=== PATIENT | female | born 1975 | race Caucasian/White ===

== ENCOUNTER → 2017-04-16 | Outpatient (CLI) | payer OTHER | LOC: BMCIMAGING 11:22 | PROVIDERS: ATTEND Internal Medicine | DX: R05 Cough (principal); R07.9 Chest pain, unspecified; M54.9 Dorsalgia, unspecified ==

== ENCOUNTER → 2017-04-21 | Outpatient (CLI) | payer OTHER | LOC: FIMAGING 11:07 | PROVIDERS: ATTEND Orthopaedic Surgery | DX: M23.221 Derangement of posterior horn of medial meniscus due to old tear or injury, right knee (principal); M22.41 Chondromalacia patellae, right knee; M25.461 Effusion, right knee ==

== ENCOUNTER 2017-07-06 05:54 | Day surgery (SDC) | payer OTHER ==
--- NOTE | 2017-07-05 20:06 | GHP ---
[f rep st] PREOP HISTORY AND PHYSICAL DATE OF ADMISSION: 07/06/2017 HISTORY: The patient is a 42-year-old female, who presents with right medial knee pain since around April of last year. This started after she was moving and carrying a lot of stuff. She has stiff ness and medial joint line area pain. Antiinflammatory medications helped a little. X-rays have rebecca wn maintenance of joint space. Her persistent medial right knee symptoms including medial joint line tenderness prompted an MRI and the MRI shows a right knee medial meniscal tear. It has associated m eniscal cysts that are small. 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 She wishes to proceed w ith right knee arthroscopy to address her symptomatic meniscal tear. ALLERGIES: No known drug allergies. PAST MEDICAL HISTORY: She does have a history of migraines, for which she uses rizatriptan 10 mg tab lets. She also uses escitalopram 20 mg tablets. REVIEW OF SYSTEMS: Negative for cardiopulmonary disease. PHYSICAL EXAM: GENERAL: Well-developed, well-nourished female in no apparent distress. HEAD AND NE CK: Normocephalic, atraumatic. CHEST: Clear. CARDIOVASCULAR: Regular rate and rhythm. ABDOMEN: Soft. NEUROLOGIC: She is alert and oriented x3. EXTREMITIES: Examination of the right knee shows tenderness centered around the medial aspect of the joint, predominantly the medial joint line. Min imal sensitivity around the patellar facets. She has a positive medial Silvestre test. Negative late ral Silvestre test. She has full range of motion. Neurovascular exam and skin are intact. Trace eff usion. IMPRESSION: Right knee symptomatic medial meniscal tear. PLAN: Right knee arthroscopy and cartilage work as needed. Benefits and risks of surgery have been reviewed. She has signed a consent form and wishes to proceed. /[id number]/MODL
[2017-07-06] MEDS ORDERED: LR 1,000 ML IV SCH (06:12)
[2017-07-06] MEDS ORDERED: ceFAZolin 2 GM/SWFI 2 GM/20 ML SYR IVP ONE (06:12)
[2017-07-06] MEDS ORDERED: LR 1,000 ML IV ONE (06:14)
--- NOTE | 2017-07-06 07:21 | PDHPUP ---
History & Physical Update H&P update statement: This history and physical update is based on an assessment of the patient which was completed after admission or registration (within 24 hours), but prior to the surgery/procedure.
[2017-07-06] MEDS ORDERED: BUPIVACAINE/EPI 0.5% 30 ML SDV ONE (07:52)
[2017-07-06] MEDS ORDERED: DEPO METHYLPREDNISOLONE 40 MG/ML SDV ONE (07:52)
[2017-07-06] MEDS ORDERED: BUPIVACAINE 0.5% 30 ML SDV ONE (07:52)
[2017-07-06] MEDS ORDERED: fentaNYL 100 MCG/2 ML INJ ONE ×2 (08:14→09:52)
[2017-07-06] MEDS ORDERED: MIDAZOLAM 2 MG/2 ML VIAL ONE (08:14)
[2017-07-06] MEDS ORDERED: PROPOFOL/EMULSION 500 MG/50 ML BOTTLE IV ONE (08:15)
[2017-07-06] MEDS ORDERED: DEXMEDETOMIDINE/NS 4MCG/ML 50 ML BTL IV ONE (08:30)
[2017-07-06] MEDS ORDERED: LIDOCAINE 2% 5 ML SDV ONE (08:33)
[2017-07-06] MEDS ORDERED: ONDANSETRON 4 MG/2 ML VIAL ONE (08:33)
[2017-07-06] MEDS ORDERED: METOCLOPRAMIDE 10 MG/2 ML VIAL ONE (08:33)
[2017-07-06] MEDS ORDERED: KETOROLAC 30 MG/1 ML SDV ONE (08:33)
[2017-07-06] MEDS ORDERED: DEXAMETHASONE 4 MG/ML VIAL ONE (08:33)
[2017-07-06] MEDS ORDERED: PROPOFOL 200 MG/20 ML VIAL ONE (08:34)
[2017-07-06] MEDS ORDERED: LR 500 ML IV PRN (08:38)
[2017-07-06] MEDS ORDERED: ONDANSETRON 4 MG/2 ML VIAL IVP PRN (08:38)
[2017-07-06] MEDS ORDERED: fentaNYL 100 MCG/2 ML INJ IVP PRN (08:38)
[2017-07-06] MEDS ORDERED: OXYCODONE/APAP 5/325 TAB PO PRN (08:38)
[2017-07-06] MEDS ORDERED: ALBUTEROL 3 ML DEYVIAL IH PRN (08:38)
[2017-07-06] MEDS ORDERED: ACETAMINOPHEN 500 MG TAB PO PRN (08:38)
[2017-07-06] MEDS ORDERED: PROMETHAZINE HCL 25 MG/ML INJ IVP PRN (08:38)
[2017-07-06] MEDS ORDERED: NALOXONE HCL 0.4 MG/ML INJ IVP PRN (08:38)
[2017-07-06] MEDS ORDERED: DEXAMETHASONE 4 MG/ML VIAL IVP PRN (08:38)
[2017-07-06] MEDS ORDERED: HYDROCODONE/APAP 5/325 TAB PO PRN (08:38)
--- NOTE | 2017-07-06 08:38 | PDANEPAE ---
ANE Past Medical History - Cardiovascular History Hx Hypertension: No Hx Arrhythmias: No Hx Chest Pain: No Hx Coronary Artery / Peripheral Vascular Disease: No Hx CHF / Valvular Disease: No Hx Palpitations: No - Pulmonary History Hx COPD: No Hx Asthma/Reactive Airway Disease: No Hx Recent Upper Respiratory Infection: No Hx Oxygen in Use at Home: No Hx Sleep Apnea: No Sleep Apnea Screening Result - Last Documented: Negative - Neurologic History Hx Cerebrovascular Accident: No Hx Seizures: No Hx Dementia: No - Endocrine History Hx Diabetes: No - Renal History Hx Renal Disorders: No - Liver History Hx Hepatic Disorders: No - Neurological & Psychiatric Hx Hx Neurological and Psychiatric Disorders: Yes Neurological / Psychiatric History Comment: depression - Cancer History Hx Cancer: No - Congenital Disorder History Hx Congenital Disorders: No - GI History Hx Gastrointestinal Disorders: No - Other Health History Other Health History: wears glasses/ contacts - Chronic Pain History Chronic Pain: No - Surgical History Prior Surgeries: x2. tubal ANE Review of Systems Review of Systems: - Exercise capacity METS (RN): 4 METS ANE Patient History - Allergies Allergies/Adverse Reactions: No Known Allergies Allergy (Verified 07/06/17 06:13) - Home Medications Home Medications: Escitalopram Oxalate 06/05/17 [Last Taken 07/04/17] Herbals/Supplements -Info Only 06/05/17 [Last Taken 07/05/17] IBUPROFEN 06/05/17 [Last Taken 07/02/17] Maxalt 06/05/17 [Last Taken 07/02/17] - NPO status NPO Since - Liquids (Date): 07/06/17 NPO Since - Liquids (Time): 04:30 NPO Since - Solids (Date): 07/05/17 NPO Since - Solids (Time): 19:00 - Smoking Hx Smoking Status: Former smoker - Family Anes Hx Family Hx Anesthesia Complications: none ANE Labs/Vital Signs - Vital Signs Blood Pressure: 115/75 Heart Rate: 72 Respiratory Rate: 18 O2 Sat (%): 94 Height: 160.02 cm Weight: 99.79 kg ANE Physical Exam - Airway Neck exam: FROM, short neck Mallampati Score: Class 2 Mouth exam: normal dental/mouth exam - Pulmonary Pulmonary: no respiratory distress, no rales or rhonchi, clear to auscultation - Cardiovascular Cardiovascular: regular rate and rhythym, no murmur, rub, or gallop - ASA Status ASA Status: II ANE Anesthesia Plan Anesthesia Plan: GA w LMA
--- NOTE | 2017-07-06 10:21 | POSTANESTH ---
Post Anesthetic Evaluation Cardiovascular Status: Normal, Stable Respiratory Status: Normal, Stable, Requires Airway Assist Level of Consciousness/Mental Status: Moderately Sleepy Pain Control: Adequate, Prn Tx Ordered Nausea/Vomiting Control: Adequate, Prn Tx Ordered Complications Possibly Related to Anesthesia: None Noted
[2017-07-06 10:30] VITALS: PULSE 71; RESP 16; TEMP 97.9
[2017-07-06 10:48] VITALS: BP 92/65; O2SAT 95
--- NOTE | 2017-07-06 11:33 | GOP ---
[f rep st] OPERATIVE REPORT DATE OF OPERATION: 07/06/2017 SURGEON: Josh Berry MD ANESTHESIOLOGIST: Marcela Campbell MD PREOPERATIVE DIAGNOSIS: Right knee medial meniscal tear, patellar chondromalacia. POSTOPERATIVE DIAGNOSIS: Right knee medial meniscal tear, medial femoral chondromalacia, patellar ch ondromalacia. PROCEDURE PERFORMED: Right knee arthroscopy, medial, femoral and patellar chondroplasty. FINDINGS: At surgery, exam under anesthesia demonstrated good motion and stability. On arthroscopy, there is chondromalacia of the patella midline distal grade 2 to small area of grade 3. The trochlea r groove intact. ACL intact in the notch. In the medial compartment, there is a complex meniscal te ar of the posterior horn about the inner 1/2 of the substance to 2/3rds of the substance working back toward the meniscal root. The meniscal root does not in itself appeared to be unstable. There were flap components, frayed areas and it displaces into the joint. There is an area of grade 2 to grade 3 chondromalacia of the posterior aspect of the medial femoral condyle where it has been riding over this meniscus, none of it full thickness. Tibial plateau grade 1 chondromalacia. Lateral compartme nt has minimal chondromalacia grade 1 on the tibial surface. The lateral femoral condyle intact. The lateral meniscus intact. INDICATIONS: Marie is a 42-year-old female, who presents with history, exam and an MRI consistent wi th a medial meniscal tear. It is symptomatic causing her mechanical symptoms, pain and swelling. DESCRIPTION OF PROCEDURE: The patient was taken the operating room, placed supine on the operating t able. Placed under general anesthetic with laryngeal mask ventilation. She received 2 g of IV Ancef . I used a leg moore on the right thigh. The right knee was prepped and draped out for arthroscopy with chlorhexidine prep. I used standard arthroscopy portals. The entire knee was inspected with t spike above-noted findings. I used a basket punch and a rotary shaver to ellipse the medial meniscus ba ck to a stable rim, the remaining rim was smoothed, tapered and balanced with the shaver. I smoothed the medial femoral condyle. I also smoothed the undersurface of the patella. The joint was irrigat ed. I placed 20 cc of 0.5% plain Marcaine in the joint and closed the arthroscopy portals with 4-0 P rolene. The wounds were dressed with Betadine-soaked Adaptic, 4x4s, sterile Webril, and an Quinn wrap. There were no complications. The estimated blood loss was minimal. No drains. No specimens. All counts correct. No tourniquet was required and the patient was taken in stable condition to recovery . /[id number]/MODL
== END 2017-07-06 11:05 | disposition hospice, home (50) ==
LOC: FSGY 05:54
PROVIDERS: ATTEND Orthopaedic Surgery
PROC: 0SBC4ZZ Excision of Right Knee Joint, Percutaneous Endoscopic Approach (ICD-10-PCS; principal; 2017-07-06 08:15)
DX: S83.231A Complex tear of medial meniscus, current injury, right knee, initial encounter (principal); M22.41 Chondromalacia patellae, right knee; G43.909 Migraine, unspecified, not intractable, without status migrainosus; X50.0XXA Overexertion from strenuous movement or load, initial encounter; Y93.E6 Activity, residential relocation; Y99.8 Other external cause status
CPT/HCPCS: J0690; J1030; J1100; J1885; J2250; J2405; J2704; J2765; J3010

== ENCOUNTER → 2018-08-30 | Outpatient (CLI) | payer OTHER | LOC: FIMAGING 12:08 | PROVIDERS: ATTEND Internal Medicine | DX: J02.9 Acute pharyngitis, unspecified (principal) ==

== ENCOUNTER → 2018-09-06 | Outpatient (CLI) | payer OTHER | LOC: FIMAGING 14:32 | PROVIDERS: ATTEND Internal Medicine | DX: J15.9 Unspecified bacterial pneumonia (principal) ==